=== PATIENT | female | born 1960 | race Caucasian/White ===

== ENCOUNTER 2021-07-20 17:27 | Emergency (ER) | payer SELFPAY ==
[2021-07-20] VITALS (14 sets, daily range): BP systolic 161–193; BP diastolic 74–101; PULSE 58–69; RESP 18; TEMP 36.8; O2SAT 95–100; BMI 23.0
--- NOTE | 2021-07-20 18:34 | PC.NURSE ---
pt removed off of back board via log roll per LORENA DEL ROSARIO okay at this time.
--- NOTE | 2021-07-20 18:42 | CT_ITS ---
PROCEDURE INFORMATION: Exam: CT Cervical Spine Without Contrast Exam date and time: 07/20/2021 6:50 PM Age: 60 years old Clinical indication: Injury or trauma; Fall; Blunt trauma; Additional info: Pain after fall TECHNIQUE: Imaging protocol: Computed tomography images of the cervical spine without contrast. Radiation optimization: All CT scans at this facility use at least one of these dose optimization techniques: automated exposure control; mA and/or kV adjustment per patient size (includes targeted exams where dose is matched to clinical indication); or iterative reconstruction. COMPARISON: CT HEAD/BRAIN WO CON 07/20/2021 6:47 PM FINDINGS: Bones/joints: Anatomic alignment. No acute fracture seen. Moderate degenerative changes at C1-C2. No high-grade disc height loss. Mild prevertebral spondylosis. Moderate cervical facet arthropathy. No severe central spinal canal stenoses. There are neural foraminal stenoses due to uncovertebral and facet arthropathy. Discs/Spinal canal/Neural foramina: See Bones/joints finding. Lungs: Lung apices are normal. Vasculature: Mild calcified atherosclerosis at the carotid bifurcations. Soft tissues: Unremarkable. IMPRESSION: No cervical spine fracture seen.
--- NOTE | 2021-07-20 18:42 | CT_ITS ---
PROCEDURE INFORMATION: Exam: CT Thoracic Spine Without Contrast Exam date and time: 07/20/2021 6:52 PM Age: 60 years old Clinical indication: Injury or trauma; Fall; Blunt trauma (contusions or hematomas); Additional info: Pain after fall TECHNIQUE: Imaging protocol: Computed tomography images of the thoracic spine without contrast. Radiation optimization: All CT scans at this facility use at least one of these dose optimization techniques: automated exposure control; mA and/or kV adjustment per patient size (includes targeted exams where dose is matched to clinical indication); or iterative reconstruction. COMPARISON: CT CERVICAL SPINE WO CON 07/20/2021 6:50 PM FINDINGS: Bones/joints: Mild changes of osteopenia. Thoracic spondylosis. 2-3 mm right paracentral osteophytic ridge at T7-8. Mild thoracic cord effacement without spinal stenosis. Multilevel hypertrophic facet changes. Mild-moderate left T8-9 neural foraminal stenosis. No evidence of acute osseous injury. Discs/Spinal canal/Neural foramina: See Bones/joints finding. Soft tissues: Unremarkable. IMPRESSION: 1. No evidence of acute osseous injury. 2. Thoracic spondylosis. 3. 2-3 mm right paracentral osteophytic ridge at T7-8. Mild thoracic cord effacement without spinal stenosis.
--- NOTE | 2021-07-20 18:42 | CT_ITS ---
PROCEDURE INFORMATION: Exam: CT Lumbar Spine Without Contrast Exam date and time: 07/20/2021 6:55 PM Age: 60 years old Clinical indication: Injury or trauma; Fall; Blunt trauma (contusions or hematomas); Additional info: Pain after fall TECHNIQUE: Imaging protocol: Computed tomography images of the lumbar spine without contrast. Radiation optimization: All CT scans at this facility use at least one of these dose optimization techniques: automated exposure control; mA and/or kV adjustment per patient size (includes targeted exams where dose is matched to clinical indication); or iterative reconstruction. COMPARISON: CT THORACIC SPINE WO CON 07/20/2021 6:52 PM FINDINGS: Bones/joints: Mild-moderate hypertrophic facet changes throughout the lumbar spine. No evidence of acute osseous injury. Discs/Spinal canal/Neural foramina: 2 mm disc bulges at L3-4 , L4-5 and L5-S1. No evidence of spinal or neural foraminal stenosis. 2.5-3 mm broad-based predominant right lateral disc bulge at L2-3. Mild right neural foraminal stenosis. Soft tissues: Unremarkable. IMPRESSION: 1. No evidence of acute osseous injury. 2. At L2-3: 2.5-3 mm broad-based predominant right lateral disc bulge. Mild right neural foraminal stenosis. 3. At L3-4, L4-5 and L5-S1: 2 mm disc bulges. No evidence of spinal or neural foraminal stenosis.
--- NOTE | 2021-07-20 18:43 | XR_ITS ---
PROCEDURE INFORMATION: Exam: XR Chest Exam date and time: 07/20/2021 7:01 PM Age: 60 years old Clinical indication: Injury or trauma; Fall; Blunt trauma (contusions or hematomas); Additional info: Pain after fall TECHNIQUE: Imaging protocol: XR of the chest. Views: 1 view. COMPARISON: CT THORACIC SPINE WO CON 07/20/2021 6:52 PM FINDINGS: Lungs: Unremarkable. No consolidation. Pleural spaces: Unremarkable. No pleural effusion. No pneumothorax. Heart/Mediastinum: Unremarkable. No cardiomegaly. Bones/joints: Unremarkable. IMPRESSION: No acute findings.
--- NOTE | 2021-07-20 18:44 | CT_ITS ---
PROCEDURE INFORMATION: Exam: CT Head Without Contrast Exam date and time: 07/20/2021 6:47 PM Age: 60 years old Clinical indication: Injury or trauma; Fall; Additional info: Pain after fall TECHNIQUE: Imaging protocol: Computed tomography of the head without contrast. Radiation optimization: All CT scans at this facility use at least one of these dose optimization techniques: automated exposure control; mA and/or kV adjustment per patient size (includes targeted exams where dose is matched to clinical indication); or iterative reconstruction. COMPARISON: No relevant prior studies available. FINDINGS: Brain: The brain demonstrates mild, generalized volume loss. No hemorrhage or edema seen. Cerebral ventricles: No ventriculomegaly. Paranasal sinuses: Visualized sinuses are unremarkable. No fluid levels. Mastoid air cells: Visualized mastoid air cells are well aerated. Dental: There is left maxillary molar periapical lucency. Bones/joints: No acute calvarial fracture seen. Soft tissues: Unremarkable. IMPRESSION: No acute intracranial abnormality seen.
--- NOTE | 2021-07-20 18:47 | XR_ITS ---
PROCEDURE INFORMATION: Exam: XR Pelvis Exam date and time: 07/20/2021 7:01 PM Age: 60 years old Clinical indication: Injury or trauma; Fall; Blunt trauma (contusions or hematomas); Bilateral; Pelvic region; Additional info: Pain after fall TECHNIQUE: Imaging protocol: XR pelvis. Views: 1 or 2 view. COMPARISON: CT LUMBAR SPINE WO CON 07/20/2021 6:55 PM FINDINGS: Bones/joints: No evidence of acute osseous injury. Moderate narrowing of the hip joints bilaterally. Soft tissues: Unremarkable. IMPRESSION: 1. No evidence of acute osseous injury. 2. Moderate degenerative arthritic type change involving both hip joints.
--- NOTE | 2021-07-20 18:50 | [facility].EDGENADL ---
ED Disposition Clinical Impression: Concussion Qualifiers: Encounter type: initial encounter Loss of consciousness presence/duration: with LOC of 30 min or less Qualified Code(s): S06.0X1A - Concussion with loss of consciousness of 30 minutes or less, initial encounter Cervical strain Qualifiers: Encounter type: initial encounter Qualified Code(s): S16.1XXA - Strain of muscle, fascia and tendon at neck level, initial encounter Back contusion Qualifiers: Encounter type: initial encounter Laterality: unspecified laterality Qualified Code(s): S20.229A - Contusion of unspecified back wall of thorax, initial encounter Disposition: Home, Self-Care Condition on Discharge: Good Instructions: DI for Low Back Pain, DI for Closed Head Injury, DI for Neck Sprain, DI for Thoracic Back Pain, DI for Concussion Additional Instructions: Tylenol or ibuprofen for pain. Ice packs 20 minutes 4-5 times a day to reduce any pain or swelling. Heating pad for any muscle stiffness of neck or back. Follow-up with primary care provider next week if not improving. Referrals: Provider,Referral, MD [Primary Care Provider] - - Critical Care Critical Care Time: No Attestation: On , the high probability of a clinically significant, sudden or life threatening deterioration of the following system(s) required my full and direct attention, intervention and personal management. The time I documented below is in addition to time spent performing reported procedures but includes the following listed in this critical care notation. Medical Decision Making - Sree Inquiry Pt receiving controlled substance: No Vital Signs: 07/20/21 17:25 07/20/21 17:38 07/20/21 17:42 Temperature 98.3 F Temperature Source Oral Pulse Rate 58 L Pulse Rate [Right Brachial] 64 Respiratory Rate 18 18 Blood Pressure 190/101 H 161/95 H Blood Pressure [Right Arm] 170/90 H Blood Pressure Mean 125 Blood Pressure Mean [Right Arm] 116 Blood Pressure Source [Right Arm] Automatic Cuff Blood Pressure Position Supine Blood Pressure Position [Right Arm] Sitting 02 Sat by Pulse Oximetry 98 97 Oxygen Delivery Method Room Air Room Air 07/20/21 17:52 07/20/21 18:02 07/20/21 18:06 Temperature Temperature Source Pulse Rate 64 64 59 L Pulse Rate [Right Brachial] Respiratory Rate Blood Pressure 172/98 H 184/91 H 166/90 H Blood Pressure [Right Arm] Blood Pressure Mean 122 122 115 Blood Pressure Mean [Right Arm] Blood Pressure Source [Right Arm] Blood Pressure Position Blood Pressure Position [Right Arm] 02 Sat by Pulse Oximetry 98 95 99 Oxygen Delivery Method 07/20/21 18:12 07/20/21 18:18 07/20/21 18:22 Temperature Temperature Source Pulse Rate 59 L 63 66 Pulse Rate [Right Brachial] Respiratory Rate Blood Pressure 184/89 H 174/97 H 177/98 H Blood Pressure [Right Arm] Blood Pressure Mean 118 122 124 Blood Pressure Mean [Right Arm] Blood Pressure Source [Right Arm] Blood Pressure Position Blood Pressure Position [Right Arm] 02 Sat by Pulse Oximetry 99 100 100 Oxygen Delivery Method 07/20/21 18:29 07/20/21 18:32 07/20/21 18:40 Temperature Temperature Source Pulse Rate 64 60 61 Pulse Rate [Right Brachial] Respiratory Rate Blood Pressure 193/89 H 190/101 H 182/82 H Blood Pressure [Right Arm] Blood Pressure Mean 123 130 115 Blood Pressure Mean [Right Arm] Blood Pressure Source [Right Arm] Blood Pressure Position Blood Pressure Position [Right Arm] 02 Sat by Pulse Oximetry 99 98 98 Oxygen Delivery Method 07/20/21 18:42 Temperature Temperature Source Pulse Rate 61 Pulse Rate [Right Brachial] Respiratory Rate Blood Pressure 176/84 H Blood Pressure [Right Arm] Blood Pressure Mean 105 Blood Pressure Mean [Right Arm] Blood Pressure Source [Right Arm] Blood Pressure Position Blood Pressure Position [Right Arm] 02 Sat by Pulse Oxim
== END 2021-07-20 20:20 | disposition home or self-care (01) ==
PROVIDERS: Emergency Provider Emergency Medicine
DX: S06.0X1A Concussion with loss of consciousness of 30 minutes or less, initial encounter (principal); S16.1XXA Strain of muscle, fascia and tendon at neck level, initial encounter; S20.229A Contusion of unspecified back wall of thorax, initial encounter; Y92.29 Other specified public building as the place of occurrence of the external cause
CPT/HCPCS: 70450; 71045; 72125; 72128; 72131; 72170; 96372; 99285